=== PATIENT | female | born 1990 | race Caucasian/White ===

== ENCOUNTER 2017-07-10 20:07 | Inpatient (IN) | payer OTHER ==
[~2017-07-10] VITALS: Ht 154.9 cm; Wt 62.7 kg
--- NOTE | 2017-07-10 21:18 | ED PSYCHIATRIC COMPLAINT ---
History of Present Illness General Chief Complaint: Psychiatric Related Complaint Stated Complaint: "PSY EVAL,SI" Source: patient Exam Limitations: no limitations Vital Signs & Intake/Output Vital Signs & Intake/Output Vital Signs Date Time Temp Pulse Resp B/P B/P Pulse O2 O2 Flow FiO2 Mean Ox Delivery Rate 07/11 0639 97.7 89 20 108/60 99 Room Air 07/10 2246 98.6 92 19 110/76 98 Room Air 07/10 2021 98.5 118 18 115/78 96 Room Air ED Intake and Output 07/11 0000 07/10 1200 Intake Total Output Total Balance Patient 145 lb Weight Weight Reported by Patient Measurement Method Allergies Coded Allergies: No Known Allergies (07/10/17) Reconcile Medications Clonazepam 1 MG TABLET 1 TAB PO BIDP PRN ANXIETY (Reported) Dextroamphetamine/Amphetamine (Dextroamp-Amphet ER 30 MG Cap) (Unknown Strength) CAP.ER.24H (Unknown Dose) PO QAM ADHD (Reported) Escitalopram Oxalate 10 MG TABLET 1 TAB PO DAILY MENTAL HEALTH (Reported) Hydroxyzine HCl (hydrOXYzine HCl) (Unknown Strength) TABLET (Unknown Dose) UNKNOWN (Reported) Ibuprofen 600 MG TABLET 1 TAB PO TID PRN PAIN/INFLAMMATION (Reported) with food [place] Carbonate (Unknown Strength) CAPSULE (Unknown Dose) PO DAILY MENTAL HEALTH (Reported) Triage Note: PT FROM HOME C/O DEPRESSION/ SI+ THOUGHTS. PT STATES A MIX OF EVENTS IN HER LIFE IS CAUSING HER TO BE DEPRESSED AND THOUGHTS TO HARM HERSELF. PT STATES PLAN WAS TO "TAKE A BUNCH OF TYLENOL PM'S AND NEVER WAKE UP, BECAUSE I CANT TAKE ACETAMINOPHEN D/T THE ADDERALL. PTS VSS. FRIEND IN TRIAGE WITH PT FOR SUPPORT. PT DENIES -HI. Triage Nurses Notes Reviewed? yes Onset: Gradual Duration: day(s):, changing over time, continues in ED, getting worse Timing: recent history Severity: moderate, severe Associated Symptoms: anxiety, suicidal ideation LMP (ages 10-50): unknown : No Patient currently breastfeeds: No HPI: 27-year-old female past medical history of anxiety and depression presents for evaluation of increasing depression and suicidal ideation. Patient states that over the past several days and having thoughts of wanting to hurt herself. She states he has a plan to take large amounts of Tylenol PMs. She reports multiple different life stressors are causing this but denies any single acute change. She denies any alcohol or drug use. She is prescribed Klonopin which she takes as needed for anxiety. She reports drinking occasionally but not daily. No homicidal ideation. No chest pain shortness of breath or hallucinations. She's never been hospitalized for psychiatric issues in the past. (Gibran Grigsby) Past History Travel History Traveled to [place] past 21 day No Medical History Any Pertinent Medical History? see below for history Psychiatric: anxiety, depression, ADHD Isolation History: Standard Surgical History Surgical History: non-contributory Psychosocial History What is your primary language Guyanese Tobacco Use: Current Daily Use Daily Tobacco Use Amount/Type: => 5 Cigarettes daily ETOH Use: occasional use Illicit Drug Use: denies illicit drug use Family History Hx Contributory? No (Gibran Grigsby) Review of Systems Review of Systems Constitutional: Reports: no symptoms. EENTM: Reports: no symptoms. Respiratory: Reports: no symptoms. Cardiovascular: Reports: no symptoms. GI: Reports: no symptoms. Genitourinary: Reports: no symptoms. Musculoskeletal: Reports: no symptoms. Skin: Reports: no symptoms. Neurological/Psychological: Reports: see HPI, anxiety, depressed. Hematologic/Endocrine: Reports: no symptoms. Immunologic/Allergic: Reports: no symptoms. All Other Systems: Reviewed and Negative (Gibran Grigsby) Physical Exam Physical Exam General Appearance: well developed/nourished, no apparent distress, alert, awake Head: atraumatic, normal appearance Eyes: Bilateral: normal appearance, PERRL, EOMI. Ears, Nose, Throat: normal pharynx, normal ENT inspection, hearing grossly normal Neck: normal inspection, supple, full range of motion Respiratory: normal breath sounds, chest non-tender, no respiratory distress, lungs clear Cardiovascular: regular rate/rhythm Gastrointestinal: soft, non-tender Extremities: normal range of motion Neurological/Psychiatric: no motor/sensory deficits, awake, alert, calm Appearance/Memory/Insight: disheveled Behavoir/Eye Contact/Speech: cooperative, normal speech, good eye contact Thoughts/Hallucinations: normal thought pattern, no apparent hallucination Skin: intact, normal color, warm/dry SAD PERSONS SAD PERSONS Response Value Depression/Hopelessness? yes 2 Organized/Serious Attempt yes 2 Social Support? has support 0 Stated Future Intent? yes 2 Total 6 SAD PERSONS Done? yes (Black PA,Gibran) Progress Differential Diagnosis: dementia, drug intoxication, drug overdose, drug withdrawal, electrolyte abnormality Plan of Care: Orders Procedure Date/time Status Regular Diet 07/11 B Active Admit to inpatient psych 07/11 1111 Active Admit to inpatient 07/11 1111 Active Add-on Test (ER Only) 07/11 0132 Active LITHIUM 07/10 2122 Complete Add-on Test (ER Only) 07/10 2112 Active ETHANOL 07/10 2112 Complete Continuous Observation Monitor 07/10 2054 Active URINE 07/10 2054 Complete URINE DRUG SCREEN FOR ER ONLY 07/10 2054 Complete URINALYSIS 07/10 2054 Complete COMPREHENSIVE METABOLIC PANEL 07/10 2054 Complete CBC WITHOUT DIFFERENTIAL 07/10 2054 Complete ED CRISIS PSYCH CONSULT 07/10 2054 Active Current Medications Sig/Chantelle Start time Last Medication Dose Stop Time Status Admin Clonazepam 1 MG ONCE ONE 07/11 1115 UNVr (Klonopin 1MG Tab) 07/11 1116 Clonazepam 1 MG BID 07/11 0900 UNVr 07/11 (Klonopin 1MG Tab) 07/18 0859 0806 Escitalopram Oxalate 10 MG DAILY 07/11 0900 UNVr 07/11 (Lexapro) 0806 Laboratory Tests 07/10/172124: Urine Opiates Screen < 100, Methadone Screen < 40, Barbiturate Screen < 60, Ur Phencyclidine Scrn < 6.00, Amphetamines Screen > 1450 H, U Benzodiazepines Scrn 166, Urine Cocaine Screen < 50, Urine Cannabis Screen < 5.00, Urine Color YEL, Urine Clarity CLEAR, Urine pH 6.0, Ur Specific [place] 1.015, Urine Protein NEG, Urine Ketones NEG, Urine Nitrite NEG, Urine Bilirubin NEG, Urine Urobilinogen 0.2, Ur Leukocyte Esterase TRACE H, Ur Microscopic SEDIMENT EXAMINED, Urine RBC RARE, Urine WBC 1-3 H, Ur Epithelial Cells MANY H, Urine Bacteria FEW H, Urine Mucus RARE, Urine Hemoglobin NEG, Urine Glucose NEG, Urine Test NEGATIVE 07/10/172122: Anion Gap 12, Estimated GFR > 60, BUN/Creatinine Ratio 10.0, Glucose 89, Calcium 9.8, Total Bilirubin 0.7, AST 17, ALT 26, Alkaline Phosphatase 76, Total Protein 7.4, Albumin 4.5, Globulin 2.9, Albumin/Globulin Ratio 1.6, CBC w Diff NO MAN DIFF REQ, RBC 4.87, MCV 85.0, MCH 28.3, MCHC 33.3, RDW 13.2, MPV 8.6, Gran % 56.7, Lymphocytes % 34.9, Monocytes % 4.9, Eosinophils % 3.1, Basophils % 0.4, Absolute Granulocytes 3.6, Absolute Lymphocytes 2.2, Absolute Monocytes 0.3, Absolute Eosinophils 0.2, Absolute Basophils 0, [place] 0.4 L, Serum Alcohol < 10.0 Patient seen and evaluated. She is here reporting increasing depression and suicidal ideation. She has a plan to take large AMOUNT Tylenol. She denies hallucinations or drug use. We'll check basic labs patient will then see crisis. Blood work is within normal limits. Daily meds ordered. Patient signed off to Dr. Barriga pending crisis eval Hand-Off Endorsed To: Zeb Barriga MD Endorsed Time: 0100 Pending: other (CRISIS) (Gibran Grigsby) Hand-Off Endorsed To: Carlos Kyle MD Endorsed Time: 0700 Pending: consult, other (Zeb Barriga MD) Departure Departure Disposition: STILL A PATIENT Condition: Stable Clinical Impression Primary Impression: Suicidal ideation Referrals: Patient Has No Primary Care Dr (PCP/Family) Departure Forms: Customer Survey General Discharge Information (Gibran Grigsby) PA/JIGSAWYER Co-Sign Statement Statement: ED Attending supervision documentation- x I saw and evaluated the patient. I have also reviewed all the pertinent lab results and diagnostic results. I agree with the findings and the plan of care as documented in the PA's/JIGSAWYER's documentation. x I have reviewed the ED Record and agree with the PA's/JIGSAWYER's documentation. [] Additions or exceptions (if any) to the PAs/JIGSAWYER's note and plan are summarized below: [] (Zeb Barriga MD) Psych Admission Note Psychiatric Admission: I have reviewed all the pertinent lab results and diagnostic results. AYO EDDY will be admitted to our inpatient Psychiatric unit for treatment and care. (Anabella TAYLOR,Carlos Ruiz)
[2017-07-10 21:33] LABS: ABSOLUTE BASOPHIL COUNT 0 /CUMM (0.0-0.2); ABSOLUTE EOSINOPHIL COUNT 0.2 /CUMM (0.0-0.7); ABSOLUTE GRANULOCYTE CT 3.6 /CUMM (1.4-6.5); ABSOLUTE LYMPH COUNT 2.2 /CUMM (1.2-3.4); ABSOLUTE MONOCYTE COUNT 0.3 /CUMM (0.10-0.60); BASOPHIL % 0.4 % (0.0-2.0); EOSINOPHIL % 3.1 % (0-5); GRANULOCYTE % 56.7 % (42.2-75.2); HEMATOCRIT 41.4 % (37-47); MEAN CORPUSCULAR HGB 28.3 PG (27.0-31.0); MEAN CORPUSCULAR HGB CONC 33.3 G/DL (33.0-37.0); MEAN PLATELET VOLUME 8.6 FL (7.4-10.4); PLATELET COUNT 279 /CUMM (130-400); RBC DISTRIBUTION WIDTH 13.2 % (11.5-14.5); RED BLOOD CELL CT 4.87 /CUMM (4.20-5.40); WHITE BLOOD CELL COUNT 6.4 /CUMM (4.8-10.8)
[2017-07-10] MEDS ORDERED: DEXTROAMP-AMPHE30 M1 PO (21:45)
[2017-07-10] MEDS ORDERED: ESCITALOPRAM OX10 MG PO (21:46)
[2017-07-10] MEDS ORDERED: CLONAZEPAM1 M2 PO (21:46)
[2017-07-10] MEDS ORDERED: LITHIUM CARBON300 M4 PO (21:46)
[2017-07-10] MEDS ORDERED: IBUPROFEN600 M1 PO (21:47)
[2017-07-10] MEDS ORDERED: HYDROXYZINE HCL25 M3 (21:47)
[2017-07-11 02:21] LABS: LITHIUM 0.4 mmol/L (0.6-1.2)
--- NOTE | 2017-07-11 10:28 | ED PSYCH CRISIS CONSULTATION ---
Crisis Consult Basic Assessment Date of Consult: 07/11/17 Responsible Person/Accompanied By: father present Insurance Authorization: Insurance #1: Insurance name: [employer] Phone number: Policy number: [id number] Group number: Authorization number: ED Provider: Patient's ED Provider: Gibran Grigsby Primary Care Physician: Patient's PCP: Patient Has No Primary Care Dr PCP's Phone Number: Current Psychiatrist: Dr. Osmani Parker Chief Complaint: Psychiatric Related Complaint Patient's Quote: "First episode of severe depression" Present Illness: Pt is a 27 year old single female presented to the ED last night, 07/10, with worsening depression and SI w/ plan to overdose on Tylenol PM. Pt has had passive suicidal thoughts before but never had a plan to overdose. Pt reports she has been working two jobs for the last month and is exhausted and overwhelemed. 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 She picked up the second job to help with her financial difficulties. Pt currently sees a psychiatrist, Dr. Osmani Parker and a therapist, Aisha. Pt sees Aisha 1x/ month for the last year. Pt has been seeing psychiatrist for a few months and had a psychiatrist prior to that whom she had scheduling difficulties with. Pt was on Lexapro 10mg, Klonopin and Adderall prior to starting with Dr. Parker. Crisis spoke with Dr. Akhtar ([phone]). He reports he continued medications pt reported she had been prescribed and added [place] for the suicidal thinking. He reports patient's presentation was acute this week with no new stressor. Pt endorses the following symptoms of depression: no apetite, trouble falling asleep then waking up every 3 hours, overwhelming anxiety and sadness. Pt reports she had one episode of mynor in which she "did reckless things that were out of character". She stated a psychiatrist once old her that she may be diagnosed with Bipolar II Disorder. Pt's urine toxicology report was positive for ampethamines and is prescribed Adderral. Her BAL was zero. Pt does endorse drinking 4-5 beers every other weekend. Pt reports she used to drink a lot more and her parents told her to cut back so she did. Pt reports 1 incident in which she was in [place] on and she was put into the "drunk tank" but then released and not arrested. Pt has no other legal history. Crisis met with patient's father, Adalid Kumar. Father is concerned about patient. Father reports her depression has been "bad" for the last 8-9 months but has gotten much worse over the last 3-4 months. He reports he is concerned that if pt goes home she will overdose on her medication. Crisis completed the C-SSRS. Pt has the following risk factors: wishes to be , suicidal thoughts, and plan to overdose within the last several days. pt has the following protective factors: supportive family and engaged in work. Crisis consulted with Dr. Jimenez and pt is recommended for inpatient psychiatric treatment. Pt agrees and signed voluntary agreement. Patient's Address: [address] [place] [address] Other Phone Number: Who Do You Live With? Family Family/Informants Interviewed: Met with fatherAdalid in person. Father has concerns about patient if she leaves. He reports pt's mother cries in bed at night because she is worried one day the pt will overdose on her medication. Father is concerned if she goes home nothing will change. Father thinks inpatient would be helpful. Allergies - Coded Allergies: No Known Allergies (07/10/17) Current Medications - Scheduled Medications Dextroamphetamine/Amphetamine (Dextroamp-Amphet ER 30 MG Cap) (Unknown Strength) CAP.ER.24H (Unknown Dose) PO QAM ADHD #30 (Reported) Entered as Reported by Paulette Murphy on 07/10/172144 Escitalopram Oxalate 10 MG TABLET 1 TAB PO DAILY MENTAL HEALTH #10 (Reported) Entered as Reported by Paulette Murphy on 07/10/172145 [place] Carbonate (Unknown Strength) CAPSULE (Unknown Dose) PO DAILY MENTAL HEALTH #10 (Reported) Entered as Reported by Paulette Murphy on 07/10/172145 Scheduled PRN Medications Clonazepam 1 MG TABLET 1 TAB PO BIDP PRN ANXIETY #30 (Reported) Entered as Reported by Paulette Murphy on 07/10/172145 Ibuprofen 600 MG TABLET 1 TAB PO TID PRN PAIN/INFLAMMATION #15 (Reported) Entered as Reported by Paulette Murphy on 07/10/172146 Miscellaneous Medications Hydroxyzine HCl (hydrOXYzine HCl) (Unknown Strength) TABLET (Unknown Dose) UNKNOWN #15 (Reported) Entered as Reported by Paulette Murphy on 07/10/172146 Laboratory Results: Laboratory Tests 07/10/172124: Urine Opiates Screen < 100, Methadone Screen < 40, Barbiturate Screen < 60, Ur Phencyclidine Scrn < 6.00, Amphetamines Screen > 1450 H, U Benzodiazepines Scrn 166, Urine Cocaine Screen < 50, Urine Cannabis Screen < 5.00, Urine Color YEL, Urine Clarity CLEAR, Urine pH 6.0, Ur Specific [place] 1.015, Urine Protein NEG, Urine Ketones NEG, Urine Nitrite NEG, Urine Bilirubin NEG, Urine Urobilinogen 0.2, Ur Leukocyte Esterase TRACE H, Ur Microscopic SEDIMENT EXAMINED, Urine RBC RARE, Urine WBC 1-3 H, Ur Epithelial Cells MANY H, Urine Bacteria FEW H, Urine Mucus RARE, Urine Hemoglobin NEG, Urine Glucose NEG, Urine Test NEGATIVE 07/10/172122: Anion Gap 12, Estimated GFR > 60, BUN/Creatinine Ratio 10.0, Glucose 89, Calcium 9.8, Total Bilirubin 0.7, AST 17, ALT 26, Alkaline Phosphatase 76, Total Protein 7.4, Albumin 4.5, Globulin 2.9, Albumin/Globulin Ratio 1.6, CBC w Diff NO MAN DIFF REQ, RBC 4.87, MCV 85.0, MCH 28.3, MCHC 33.3, RDW 13.2, MPV 8.6, Gran % 56.7, Lymphocytes % 34.9, Monocytes % 4.9, Eosinophils % 3.1, Basophils % 0.4, Absolute Granulocytes 3.6, Absolute Lymphocytes 2.2, Absolute Monocytes 0.3, Absolute Eosinophils 0.2, Absolute Basophils 0, [place] 0.4 L, Serum Alcohol < 10.0 Past History Past Medical History Neurological: hx of concussion in high school Psychiatric: anxiety, depression, ADHD Past Surgical History Surgical History: non-contributory Psychosocial History Strengths/Capabilities: pt is motivated for treatment, specifically CBT pt is employed Physical Limitations (Interventions): none observed Psychiatric Treatment History Psych Treatment Psychiatric Treatment Yes Inpatient Treatment No Outpatient Treatment Yes Location of Treatment Dr. Osmani Person, therapist "Aisha" Reason for Treatment depression/anxiety/adhd Dates of Treatment recently started with this psychiatrst, seen therapist 1 year Response to Treatment fair Diagnosis by History: Depression Anxiety ADHD Substance Use/Abuse History Drug Use/Abuse 1 Substances Used/Abused Yes Substance Used/Abused Alcohol First Use high school Last Used last friday07/05/17 How much used/taken 4-5 beers How often every other weekend For how long drinks less now than before and no longer drinks hard alcohol Route of use oral Drug Use/Abuse 2 Substances Used/Abused Yes Substance Used/Abused Other (list in comments) (Adderall ) First Use 11th grade Last Used yesterday How often daily For how long daily- 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 ADHD Route of use oral Substance Abuse Treatment Substance Abuse Treatment Past Substance Abuse [place] No Current Mental Status Mental Status Orientation: Person, Place, Situation Affect: Sad Speech: WNL Neuro-vegetative: Anhedonia, Appetite Decreased, Energy Decreased, Sleep Disturbance Appearance Appearance- Dress/Hygiene: pt presents in hospital attire, some acne on face Behaviors Thought Process: Logical/Rational Thought Content: WNL Memory: WNL Insight: Fair SI/HI Risk Assessment Past Suicidal Ideation/Attempts Yes Current Suicidal Ideation/Att Yes Past Homicidal Ideation/Att: No Current Homicidal Ideation/Attempts No Degree of Intent: Plan (overdose on tylenol PM) Danger To: Self Risk Factors: high anxiety/distress, substance abuse, limited support Lethality Ratin PTSD Checklist PTSD Done? patient declined ED Management Sitter: Yes Restraints: No DSM5/PS Stressors/Medical Prob Diagnosis' (DSM 5, Stressors, Medical): F33.3 Major Depressive Disorder, Severe F90.9 Unspecified Attention-Deficit Hyperactivity Disorder F10.10 Alcohol Use Disorder, Mild Financial Stress Current GAF: 28 Departure Disposition Psych Medical Clearance Date: 07/11/17 Medically Cleared at: 0930 Time Started: 929 Time Ended: 1015 Psychiatrist Consulted: Dr. Jimenez Date Disposition Established: 07/11/17 Time Disposition Established: 1030 Plan for Disposition - Modality: Inpatient Psychiatry Facility: [facility] Referrals Patient Has No Primary Care Dr (PCP/Family)
--- NOTE | 2017-07-11 12:05 | IP CRISIS DIAG ASSESS PSYCH ---
See Addendum Diagnostic Assessment Basic Assessment Insurance Authorization: Insurance #1: Insurance name: [employer] Phone number: Policy number: [id number] Group number: Authorization number: Patient is authorized for 5 days 07/11/17-07/15/17. Auth # [id number]. Review on . SW to call reviewerDemarco at [phone]. Primary Care Physician: Patient's PCP: Patient Has No Primary Care Dr PCP's Phone Number: Patient's Quote: "First episode of severe depression" Present Illness: Pt is a 27 year old single female presented to the ED last night, 07/10, with worsening depression and SI w/ plan to overdose on Tylenol PM. Pt has had passive suicidal thoughts before but never had a plan to overdose. Pt reports she has been working two jobs for the last month and is exhausted and overwhelemed. 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 She picked up the second job to help with her financial difficulties. Pt currently sees a psychiatrist, Dr. Osmani Parker and a therapist, Aisha. Pt sees Aisha 1x/ month for the last year. Pt has been seeing psychiatrist for a few months and had a psychiatrist prior to that whom she had scheduling difficulties with. Pt was on Lexapro 10mg, Klonopin and Adderall prior to starting with Dr. Parker. Crisis spoke with Dr. Akhtar ([phone]). He reports he continued medications pt reported she had been prescribed and added Irving for the suicidal thinking. He reports patient's presentation was acute this week with no new stressor. Pt endorses the following symptoms of depression: no apetite, trouble falling asleep then waking up every 3 hours, overwhelming anxiety and sadness. Pt reports she had one episode of mynor in which she "did reckless things that were out of character". She stated a psychiatrist once old her that she may be diagnosed with Bipolar II Disorder. Pt's urine toxicology report was positive for ampethamines and is prescribed Adderral. Her BAL was zero. Pt does endorse drinking 4-5 beers every other weekend. Pt reports she used to drink a lot more and her parents told her to cut back so she did. Pt reports 1 incident in which she was in [place] on and she was put into the "drunk tank" but then released and not arrested. Pt has no other legal history. Crisis met with patient's father, Adalid Kumar. Father is concerned about patient. Father reports her depression has been "bad" for the last 8-9 months but has gotten much worse over the last 3-4 months. He reports he is concerned that if pt goes home she will overdose on her medication. Crisis completed the C-SSRS. Pt has the following risk factors: wishes to be , suicidal thoughts, and plan to overdose within the last several days. pt has the following protective factors: supportive family and engaged in work. Crisis consulted with Dr. Jimenez and pt is recommended for inpatient psychiatric treatment. Pt agrees and signed voluntary agreement. Patient's Address: [address] [place] [address] Other Phone Number: Who Do You Live With? Family Feel Safe Where You Live? Yes Marital Status: single Do You Have Children? No Primary Language? Irish Language(s) Spoken At Home: Irish Family/Informants Interviewed: Met with father, Adalid in person. Father has concerns about patient if she leaves. He reports pt's mother cries in bed at night because she is worried one day the pt will overdose on her medication. Father is concerned if she goes home nothing will change. Father thinks inpatient would be helpful. Allergies - Coded Allergies: No Known Allergies (07/10/17) Current Medications - Scheduled Medications Dextroamphetamine/Amphetamine (Dextroamp-Amphet ER 30 MG Cap) (Unknown Strength) CAP.ER.24H (Unknown Dose) PO QAM ADHD #30 (Reported) Entered as Reported by Paulette Murphy on 07/10/172144 Escitalopram Oxalate 10 MG TABLET 1 TAB PO DAILY MENTAL HEALTH #10 (Reported) Entered as Reported by Paulette Murphy on 07/10/172145 [place] Carbonate (Unknown Strength) CAPSULE (Unknown Dose) PO DAILY MENTAL HEALTH #10 (Reported) Entered as Reported by Paulette Murphy on 07/10/17 214 Scheduled PRN Medications Clonazepam 1 MG TABLET 1 TAB PO BIDP PRN ANXIETY #30 (Reported) Entered as Reported by Paulette Murphy on 07/10/172145 Ibuprofen 600 MG TABLET 1 TAB PO TID PRN PAIN/INFLAMMATION #15 (Reported) Entered as Reported by Paulette Murphy on 07/10/172146 Miscellaneous Medications Hydroxyzine HCl (hydrOXYzine HCl) (Unknown Strength) TABLET (Unknown Dose) UNKNOWN #15 (Reported) Entered as Reported by Paulette Murphy on 07/10/172146 Consequences of Psych Med Use: pt reports she has been taking Lexapro, Adderall, and Klonopin for a while. Psychiatrist recently added Irving to treat suicidal thinking. Lab Results: Laboratory Tests 07/10/172124: Urine Opiates Screen < 100, Methadone Screen < 40, Barbiturate Screen < 60, Ur Phencyclidine Scrn < 6.00, Amphetamines Screen > 1450 H, U Benzodiazepines Scrn 166, Urine Cocaine Screen < 50, Urine Cannabis Screen < 5.00, Urine Color YEL, Urine Clarity CLEAR, Urine pH 6.0, Ur Specific [place] 1.015, Urine Protein NEG, Urine Ketones NEG, Urine Nitrite NEG, Urine Bilirubin NEG, Urine Urobilinogen 0.2, Ur Leukocyte Esterase TRACE H, Ur Microscopic SEDIMENT EXAMINED, Urine RBC RARE, Urine WBC 1-3 H, Ur Epithelial Cells MANY H, Urine Bacteria FEW H, Urine Mucus RARE, Urine Hemoglobin NEG, Urine Glucose NEG, Urine Test NEGATIVE 07/10/172122: Anion Gap 12, Estimated GFR > 60, BUN/Creatinine Ratio 10.0, Glucose 89, Calcium 9.8, Total Bilirubin 0.7, AST 17, ALT 26, Alkaline Phosphatase 76, Total Protein 7.4, Albumin 4.5, Globulin 2.9, Albumin/Globulin Ratio 1.6, CBC w Diff NO MAN DIFF REQ, RBC 4.87, MCV 85.0, MCH 28.3, MCHC 33.3, RDW 13.2, MPV 8.6, Gran % 56.7, Lymphocytes % 34.9, Monocytes % 4.9, Eosinophils % 3.1, Basophils % 0.4, Absolute Granulocytes 3.6, Absolute Lymphocytes 2.2, Absolute Monocytes 0.3, Absolute Eosinophils 0.2, Absolute Basophils 0, Irving 0.4 L, Serum Alcohol < 10.0 Toxicology Screen Completed? Yes Results: positive Symptoms of Use: + amphetamines, prescribed Adderrall Past History Abuse/Trauma History Trauma History/Current Trauma: Denies Legal History Current Legal Status: none Have you ever been arrested? No Psychosocial History Strengths/Capabilities: pt is motivated for treatment, specifically CBT pt is employed Physical Limitations (Interventions): none observed Psychiatric Treatment History Psych Treatment Psychiatric Treatment Yes Inpatient Treatment No Outpatient Treatment Yes Location of Treatment Dr. 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 ADHD Route of use oral Drug Use/Abuse minimum 12mo Hx 2 Substances Used/Abused Yes Substance Used/Abused Alcohol First Use high school Last Used last weekend How much used/taken 4-5 beers How often every other weekend For how long cut down, used to drink more and use to drink hard alochol Route of use oral Substance Abuse Treatment Substance Abuse Treatment Past Substance Abuse [place] No Education History Highest Level of Education: some college Preferred Learning Style: visual, auditory, experiential Current Mental Status Mental Status Orientation: Person, Place, Situation Affect: Sad Speech: WNL Neuro-vegetative: Anhedonia, Appetite Decreased, Energy Decreased, Sleep Disturbance Appearance Appearance- Dress/Hygiene: pt presents in hospital attire, some acne on face Behaviors Thought Process: Logical/Rational Thought Content: WNL Memory: WNL Insight: Fair SI/HI Risk Assessment - Minimum 6mo History- Past Suicidal Ideation/Attempts Yes Current Suicidal Ideation/Att Yes Past Homicidal Ideation/Att: No Current Homicidal Ideation/Attempts No Degree of Intent: Plan (overdose on tylenol PM) Danger To: Self Risk Factors: high anxiety/distress, substance abuse, limited support Lethality Ratin Needs/Init TX Plan/Goals: Resolve suicidal thinking increase coping skills medication evaluation AUDIT-C Questionnaire: AUDIT-C Questionnaire: Response Value ETOH use in the past year 2-4 times/month 2 # drinks typical/day 5 or 6 2 6 or > drinks per occasion Less than monthly 1 Total 5 DSM5/PS Stressors/Medical Prob Diagnosis' (DSM 5, Stressors, Medical): F33.3 Major Depressive Disorder, Severe F90.9 Unspecified Attention-Deficit Hyperactivity Disorder F10.10 Alcohol Use Disorder, Mild Financial Stress Current GAF: 28
[2017-07-11 12:37] VITALS: BP 98/64
--- NOTE | 2017-07-11 14:06 | History & Physical ---
General Information and HPI History of Present Illness: This young female is admitted for the first time to [facility] because of increasing depression. She reports that she was getting out of control and therefore was brought to the hospital by her parents and her coworker. She did not have any suicidal or homicidal ideation and claims that she was just started on lithium by her outpatient psychiatrist which he has not started taking yet she has been seeing a psychiatrist as well as a therapist regularly for a long time but denies any previous hospitalization as inpatient in [facility]. She denies any significant medical history in the past and denies any major surgeries or injuries. 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 She claims she has been on Adderall and a tranquilizer by the psychiatrist until yesterday she admits to smoking about a pack of cigarettes a day claims that she drinks in a binge fashion only when she goes over the weekend and is approximately once every couple of weeks. She denies any other illegal drugs and lives with her parents. She has 2 siblings but denies any suicidal the family and claims that her father is a recovering drug addict. Allergies/Medications Allergies: Coded Allergies: No Known Allergies (07/10/17) Home Med list Clonazepam 1 MG TABLET 1 TAB PO BIDP PRN ANXIETY (Reported) Dextroamphetamine/Amphetamine (Dextroamp-Amphet ER 30 MG Cap) (Unknown Strength) CAP.ER.24H (Unknown Dose) PO QAM ADHD (Reported) Escitalopram Oxalate 10 MG TABLET 1 TAB PO DAILY MENTAL HEALTH (Reported) Hydroxyzine HCl (hydrOXYzine HCl) (Unknown Strength) TABLET (Unknown Dose) UNKNOWN (Reported) Ibuprofen 600 MG TABLET 1 TAB PO TID PRN PAIN/INFLAMMATION (Reported) with food [place] Carbonate (Unknown Strength) CAPSULE (Unknown Dose) PO DAILY MENTAL HEALTH (Reported) Past History Travel History Traveled to [place] past 21 day No Medical History Neurological: hx of concussion in high school Gastrointestinal: lactose intolerance Musculoskeletal: chronic back pain Psychiatric: anxiety, depression, ADHD Isolation History: Standard Surgical History Surgical History: non-contributory Past Family/Social History Psychosocial History ETOH Use: occasional use Illicit Drug Use: denies illicit drug use Review of Systems Review of Systems Constitutional: Denies: no symptoms. EENTM: Denies: no symptoms. Cardiovascular: Denies: no symptoms. Respiratory: Denies: no symptoms. GI: Denies: no symptoms. Genitourinary: Denies: no symptoms. Musculoskeletal: Reports: see HPI, back pain, muscle pain. Skin: Denies: see HPI. Neurological/Psychological: Reports: see HPI, anxiety, depressed, emotional problems. Hematologic/Endocrine: Denies: no symptoms. All Other Systems: Reviewed and Negative Exam & Diagnostic Data Last 24 Hrs of Vital Signs/I&O Vital Signs Date Time Temp Pulse Resp B/P B/P Pulse O2 O2 Flow FiO2 Mean Ox Delivery Rate 07/11 1237 98.3 87 98/64 07/11 1233 Room Air 07/11 1150 99 Room Air 07/11 1142 98.0 87 18 124/56 99 Room Air 07/11 0639 97.7 89 20 108/60 99 Room Air 07/10 2246 98.6 92 19 110/76 98 Room Air 07/10 2022 98.5 118 18 115/78 96 Room Air Intake & Output 07/11 1600 07/11 0800 07/11 0000 Intake Total Output Total Balance Patient 138 lb 145 lb Weight Weight Reported by Patient Measurement Method Physical Exam General Appearance Alert, Oriented X3, Cooperative, No Acute Distress Skin No Rashes, No Breakdown, No Significant Lesion HEENT Atraumatic, PERRLA, EOMI, Mucous Membr. moist/pink Neck Supple, No JVD, No thryomegaly, +2 Carotid Pulse wo Bruit Lymphatic Cervical nl Cardiovascular Regular Rate, Normal S1, Normal S2, No Murmurs, Gallops, Rubs Lungs Clear to Auscultation, Normal Air Movement Abdomen Normal Bowel Sounds, Soft, No Tenderness, No Hepatospenomegaly, No Masses Neurological Exam Findings: Normal Gait, Normal Speech, Strength at 5/5 X4 Ext, Normal Tone, Cranial Nerves 3-12 NL, Reflexes 2+ Cranial Nerves II through XII: WNL Extremities No Clubbing, No Cyanosis, No Edema, No Tenderness/Swelling Assessment/Plan Assessment: This young female is admitted for the first time in the hospital 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 She has been seeing psychiatry on a regular basis for a long time and is admitted for adjustment of medication. From medical standpoint she has some back pain which is mostly musculoskeletal strain and there is no evidence of radiculopathy. For now there is no reason to do any radiological studies and we will treat him empirically with Naprosyn and local BenGay rub. Her admission workup including a CBC CMP and electrolytes liver functions are all within normal limits and the urine toxicology is positive for amphetamines consistent with her Adderall intake and there is no need for any other medication. As Ranked By This Provider Problem List: 1. Suicidal ideation Miscellaneous Miscellaneous Documentation Attending Case Discussed With: Julien Jimenez MD Primary Care Physician: Patient Has No Primary Care Dr Patient sees these Specialists none Level of Patient Care: CARLITA Rawls Attending MD Review Statement Attending Statement Attending MD Statement: examined this patient, reviewed EMR data (avail), discussed with nursing Attending Assessment/Plan: This young female is admitted for increasing depression and bipolar disorder. From medical standpoint she is fairly stable except for the low back pain which is due to musculoskeletal strain. Her admission blood work is normal and we will use Naprosyn and analgesic balm for symptomatic treatment. She does not need any other workup or treatment from medical standpoint.
--- NOTE | 2017-07-11 15:29 | CPS PROVIDER INIT ASMT PSYCH ---
Psychiatric Admission Resident Advisor's Note Reviewed: Yes Patient Seen and Examined: Yes Identifying Information: The patient is a 27-year-old single white female who was admitted on a voluntary request for hospitalization Chief Complaint: "This is my first episode of severe depression." Reaction to Hospitalization: The patient was admitted voluntarily History of Present Illness Onset of Illness: According to the crisis intervention notes the patient has been experiencing worsening of depression with thoughts and plan to overdose with Tylenol PM. The patient's reported that she has been seeing a prescriber and a therapist for the past year or so. The patient reported that for the last month she has been working 2 jobs and she has been feeling exhausted and overwhelmed. 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 Circumstances Leading to Admission: The patient reported that she has been experiencing increasing depression loss of appetite, trouble falling asleep, walking up every 3 hours or so, feeling overwhelmed with anxiety and sadness, and has been thinking about overdosing on Tylenol PM Problem(s) Justifying Need for Admission: Thoughts of suicide by overdose Past Psychiatric History Past Diagnosis(es)- if any: The patient reportedly was diagnosed with ADHD depression as well as anxiety Past Precipitating Factors- if any: This is the patient's first psychiatric admission the precipitating factors seem to be feeling overwhelmed with 2 jobs and psychosocial stressors as well - Include inpatient and outpatient treatment Treatment History: The patient has been seeing a prescriber and therapist for the past year or so both of them she said GALINA Gomes. History of Suicide Attempts or Gestures The patient denied past suicide attempts. Substance Abuse History: The patient used to drink quite a bit but reported that not lately and that she has cut down significantly she denied abusing illicit substances Allergies: Coded Allergies: No Known Allergies (07/10/17) Home Med List: The patient was on Lexapro and Klonopin and Adderall - Include any medical condition(s) that may - impact the patient's recovery/remission Past History Medical History Blood Transfusion Hx: No Neurological: hx of concussion in high school EENT: NONE Cardiovascular: NONE Gastrointestinal: lactose intolerance Renal: NONE Musculoskeletal: chronic back pain Psychiatric: anxiety, depression, ADHD Endocrine: NONE Isolation History: Standard Surgical History Surgical History: none Psychiatric Family/Social Hx Family History Psychiatric Illness: The patient denies any family history of psychiatric disorders Substance Use: Patient reported that her dad is a recovering heroin user he has been clean and sober for over a year Suicides: The patient denies any completed suicides in her family Social History Living Situation: She lives with parents and siblings Significant Relationships (family/friends): Parents and siblings Education: Unknown Vocation/Occupation: Patient has been working 2 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 - #1 Recognizing dangerous situations. - #2 Coping Skills. - #3 Basic information about quitting. Status of Tobacco Cessation Counseling: #1, #2 AND #3 Completed Cessation Med Status Nicotine Patch Ordered Alcohol Screening - ETOH screen POS if BAL >=80 or Audit-C>= M4/F3 Audit-C Score from Diag Assess: 5 Blood Alcohol Level: Laboratory Tests 07/10 2122 Toxicology Serum Alcohol (<10 MG/DL) < 10.0 Alcohol Use Screening Results: Pos per Audit C &/or BAL - If ETOH counseling indicated - the following topics are required. - #1 Express concern about the patient's - drinking at unhealthy levels, include informing - of national norms for moderate drinking: - men <= 14 drinks/week, max 4 drinks/occasion - women <= 7 drinks/week, max 3 drinks/occasion - #2 Providing feedback, including linking alcohol to - negative physical effects (liver injury, hypertension) - negative emotional effects (relationship problems and - depression) - negative occupational consequences (reduced work - performance) - #3 Advising the patient to abstain from alcohol or - to drink below national norms for moderate drinking - (as listed above). Status of ETOH Use Counseling: #1, #2 AND #3 Completed. Metabolic Screening - Screen if on a Neuroleptic Medication - Metabolic screening should include: - Blood Pressure, BMI, Glucose or Hgb A1c, & a - Lipid profile from within the past 365 days. Metabolic Screening Patient on a neuroleptic(s) . Enter below results for Hemoglobin A1C, and lipid panel if obtained during the last 365 days. BMI: 26.000 Blood Pressure: 98/64 Laboratory Results From [facility] (If applicable): Blood tests requested Exam and Plan Mental Status Examination Ambulation Status: Fully mobile, steady on her feet Appearance: Unremarkable Attitude towards examiner: Calm and cooperative Psychomotor activity: Normal psychomotor activity Behavior: No abnormal behaviors Quality of speech: Normal speech not pressured Affect: Full range of affect Mood: Reported feeling depressed lately Suicidal Ideation: Reporting having thoughts of suicide lately Homicidal Ideation: Denied thoughts of homicide or violent thoughts Hallucinations: Denied hallucinations Paranoid/Delusional Material: Denied feeling paranoid, there were no delusions during the interview Difficulties with thought organization: No difficulties with thought organization Insight: Impaired insight Judgment: Impaired judgment Orientation: She was alert and oriented to time, place, and person. Cognition: She showed reasonable attention and concentration during the interview. She reported that she was on stimulants for ADHD Memory Function: No impairment in short-term memory Estimate of intellectual functioning: Average Assets/Strengths Patient Identified Assets/Strengths: Patient seems to be intelligent, social, and confident Impression/Plan Impression and Plan: 27-year-old single white female who presented with increasing depression and thoughts to suicide with overdose - Include all active medical diagnosis that require tx DSM 5 Diagnosis(es): Major depressive disorder ADHD Alcohol use disorder, mild - Initial Tx Plan for Active Psych & Medical Conditions Treatment Plan: Inpatient psychiatric care with safety checks every 15 minutes Resume Abilify 2 mg daily Continue Lexapro 10 mg daily Continue Klonopin 1 mg twice daily - Factors that would help patient function - in a less restrictive setting. Factors: The patient will be discharged once she is no longer thinking of suicide
[2017-07-11 15:55] VITALS: BP 125/71
[2017-07-11 20:07] VITALS: BP 120/66
[2017-07-12 08:02] VITALS: BP 102/55
[2017-07-12 12:00] VITALS: BP 115/65
--- NOTE | 2017-07-12 14:44 | SOCIAL WORKER SOCIAL HX PSYCH ---
Social History Basic Assessment Curr Source of Income/Entitlements: employment Primary Care Physician: Patient's PCP: Patient Has No Primary Care Dr PCP's Phone Number: Primary Language? Nepalese Language(s) Spoken At Home: Nepalese Living Situation Other Living Arrangement: Lives with parents Feel Safe Where You Are Living Yes Feel Safe in Relationships? Yes Allergies - Coded Allergies: No Known Allergies (07/10/17) Current Medications - Scheduled Medications Dextroamphetamine/Amphetamine (Dextroamp-Amphet ER 30 MG Cap) (Unknown Strength) CAP.ER.24H (Unknown Dose) PO QAM ADHD #30 (Reported) Entered as Reported by Paulette Murphy on 07/10/172144 Escitalopram Oxalate 10 MG TABLET 1 TAB PO DAILY MENTAL HEALTH #10 (Reported) Entered as Reported by Paulette Murphy on 07/10/172145 [place] Carbonate (Unknown Strength) CAPSULE (Unknown Dose) PO DAILY MENTAL HEALTH #10 (Reported) Entered as Reported by Paulette Murphy on 07/10/172145 Scheduled PRN Medications Clonazepam 1 MG TABLET 1 TAB PO BIDP PRN ANXIETY #30 (Reported) Entered as Reported by Paulette Murphy on 07/10/172145 Ibuprofen 600 MG TABLET 1 TAB PO TID PRN PAIN/INFLAMMATION #15 (Reported) Entered as Reported by Paulette Murphy on 07/10/172146 Miscellaneous Medications Hydroxyzine HCl (hydrOXYzine HCl) (Unknown Strength) TABLET (Unknown Dose) UNKNOWN #15 (Reported) Entered as Reported by Paulette Murphy on 07/10/172146 Past History Past Medical History Neurological: hx of concussion in high school EENT: NONE Cardiovascular: NONE Gastrointestinal: lactose intolerance Renal: NONE Musculoskeletal: chronic back pain Psychiatric: anxiety, depression, ADHD Endocrine: NONE Past Surgical History Surgical History: non-contributory /Family History Place/Country of Origin: [place] Childhood Family Constellation: Mom, dad and 2 siblings. Primary Childhood Caretakers: father, mother Family Life During Childhood: "Rough because of my father's addiction." DCF Involvement? No Mother's Age (Current/): 50 Relationship w/Mother: Not so good, just helps financially. Relationship w/Father: "Good" Any Sibling(s)? Yes Sibling's Gender(s)/Age(s): male Sibling 1: (17), female Sibling 2: (22) Relationship w/Sibling(s): Not close Relationship w/Friends: Good Family Psych/Sub Abuse/Add Hx: drug of choice (Father used heroin) Number of Pregnancies: 0 Number of Miscarriages: 0 Number of Abortions: 0 Other Comments: Father used heroin pt.'s whole life and has now been clean for a year. Abuse/Trauma History Trauma History/Current Trauma: Denies Legal History Current Legal Status: none Pending Court Dates: None Have you ever been arrested No Hx of Juvenile Legal Charges? No Hx of Adult Legal Charges? No Civil Proceedings: None Domestic Relations Court: None Child Protective Serv Involvmnt N/A National Accounts Sales N/a Psychosocial History Primary Support System: Co-worker Strengths/Capabilities: pt is motivated for treatment, specifically CBT pt is employed Physical Limitations (Interventions): none observed Last Physical: Years ago History of Seizures? No History of Blackouts? No [place]/Social/Peer Relations Few friends Meaningful Activities: Journaling, playing video games, going to concerts, playing the [employer]. Childhood Yarsanism: Methodist Current Yazidi Affiliation: no restorationism stated Is Spirituality Important to You? "I believe in Karma but otherwise, not really." Are There Developmental Issues? No Milestones Achieved: fine motor, gross motor Psychiatric Treatment History Psych Treatment Inpatient Treatment No Outpatient Treatment Yes Location of Treatment Dr. Osmani Person, therapist "Aisha" Reason for Treatment depression/anxiety/adhd Dates of Treatment recently started with this psychiatrst, seen therapist 1 year Response to Treatment fair Diagnosis: Depression Anxiety ADHD Risk Factors: high anxiety/distress, substance abuse, limited support Substance Use/Abuse History Drug Use/Abuse Substance Used/Abused Alcohol First Use high school Last Used last weekend How much used/taken 4-5 beers How often every other weekend For how long cut down, used to drink more and use to drink hard alochol Route of use oral Have You Ever Attended AA? No Symptoms of Use: + amphetamines, prescribed Adderrall Sexual History Sexually Active Yes # of partners 4 Education History Highest Level of Education: some college Preferred Learning Style: visual, auditory, experiential HX of Learning Difficulties: ADHD Special Communication Needs: None reported Employment History Employment Employed Vocation/Occupational Hx: Past: sales, resturant and deli No. 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 History Have You Been in The ? No Current Mental Status Mental Status Orientation: Person, Place, Situation Affect: Sad Speech: WNL Neuro-vegetative: Anhedonia, Appetite Decreased, Energy Decreased, Sleep Disturbance Appearance Appearance- Dress/Hygiene: pt presents in hospital attire, some acne on face Behaviors Thought Process: Logical/Rational Thought Content: WNL Memory: WNL Insight: Fair SI/HI Risk Assessment Past Suicidal Ideation/Attempts Yes Current Suicidal Ideation/Att Yes Past Homicidal Ideation/Att: No Current Homicidal Ideation/Attempts No Degree of Intent: Plan (overdose on tylenol PM) Danger To: Self Lethality Ratin - Conclusion and Recommendations for treatment - and discharge planning
[2017-07-12 15:49] VITALS: BP 125/67
--- NOTE | 2017-07-12 16:49 | CP SOUTH PROGRESS NOTE PSYCH ---
Psych (Inpt) Progress Note Progress Note Include the following elements, when applicable: Involvement in the active treatment of the patient with behavioral observations of the patient and the patient's response to the treatment. Review of the ongoing treatment process in the context of the treatment plan. Indication of how multi-disciplinary staff members are carrying out the treatment plan. Plans for future interventions and recommendations for revision of the treatment plan. Liaison with other physicians/providers. Progress Note: Pleasant, cooperative. States that she hopes to be discharged soon, will return to her therapist and seek another psychiatrist b/c feels this could have been avoided if she was prescribed her meds earlier. She stated that she slept like a baby last night, however did complain of back pain (had some muscle spasm over last few weeks) and asked for slight increase in naproxen. She had a friend visit today and family visiting also this weekend. Not suicidal, feels much better. plans to return to work with note, stated that it keeps her busy and her mind occupied. MSE: pleasant young woman, fair grooming. no psychomotor changes. Speech is normal. Thinking is linear and not delusional. No thoughts to harm self/others. future focused. Affect is full and reactive, mood is good. Insight and judgment are good. Cognition intact. Not hallucinating. Plan: continue current plan of care. Improving clinically but may be minimizing hx to get discharged?. Has been restarted on her meds without issue.
[2017-07-12 20:02] VITALS: BP 110/66
[2017-07-13 07:50] VITALS: BP 110/54
[2017-07-13 11:58] VITALS: BP 120/76
--- NOTE | 2017-07-13 14:38 | CP SOUTH PROGRESS NOTE PSYCH ---
Psych (Inpt) Progress Note Progress Note Include the following elements, when applicable: Involvement in the active treatment of the patient with behavioral observations of the patient and the patient's response to the treatment. Review of the ongoing treatment process in the context of the treatment plan. Indication of how multi-disciplinary staff members are carrying out the treatment plan. Plans for future interventions and recommendations for revision of the treatment plan. Liaison with other physicians/providers. Progress Note: Pleasant, cooperative., Had friends visiting and has parents coming later today. Stated that her sleep was poor and wanted higher dose of trazodone. Future focused, coherent. She stated that she had her old bottle of abilify with most recent doses. She has good appetite. Her back pain is better. She did state that she had Factor V Leiden Insufficiency, recently diagnosed - sister had a PE in the past. I educated her about risk of DVT, PE, stroke, and to walk around and tell staff if her legs are swollen or painful. MSE: pleasant young woman, well groomed and well related with good eye contact. No psychomotor changes. Speech is normal. Thinking is linear and not delusional. No thoughts to harm self/others. Affect is full and reactive, mood is good. Insight and judgment are good. Cognition intact. Not hallucinating. Plan: continue current plan of care. Improving clinically but may be minimizing hx to get discharged?. Has been restarted on her meds without issue. Will ask parents to get her most recent abilify dose. * Factor V Leiden, to follow up with her PCP if any further follow up.
[2017-07-13 16:02] VITALS: BP 126/72
[2017-07-13 19:00] VITALS: BP 117/65
[2017-07-14 07:41] VITALS: BP 113/64
--- NOTE | 2017-07-14 11:54 | CP SOUTH PROGRESS NOTE PSYCH ---
Psych (Inpt) Progress Note Progress Note Future focused, coherent. She has good appetite. Pleasant, cooperative, well groomed and well related with good eye contact. No psychomotor changes. Speech is normal. Thinking is linear and not delusional. No thoughts to harm self/ others. Affect is full and reactive, mood is good. Insight and judgment are good. Cognition intact. Not hallucinating. Plan: continue current plan of care. Has been restarted on her meds without issue. hx to get discharged?. Has been restarted on her meds without issue. Will ask parents to get her most recent abilify dose. * Factor V Leiden, to follow up with her PCP if any further follow up.
[2017-07-14 12:10] VITALS: BP 119/55
--- NOTE | 2017-07-14 15:40 | SOCIAL WORKER PROG NOTE PSYCH ---
See Addendum Social Work Progress Note Progress Note Met with Nila today. She stated she is"feeling fine" and ready to discharge. She denied SI/HI, no AH/VH. 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 Also, she stated she went off her medications. She has been seeing Dr. Casron in [place], [place] and Aisha, her therapist in [place], [place]. Nila agreed to [facility] - intake 07/15 at 1:15pm for 1:30-4:30 program (M,W,F) . Met with Nila and her Father Adalid Kumar today at 4:15pm to discuss progress and discharge planning today. Also, longterm through the family meeting conferenced in her Mother, Nicky Kumar. Her Father, Adalid stated they have been concerned about her depression the past 6-7 months, but it worsened over the past 2 months. 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 Apparently she was working alot, which wasn't the issue. Her parents started to understand her depression was an illness and backed off yelling at Nila the past 2 weeks. 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 Nila stated she did not want to return to Dr. Carson in [place] or her therapist, Aisha Rodrigez, PhD . She stated her therapist is not aware she is in the hospital. She wants to decrease her hours at [employer] to [employer] and will work with her boss at the [employer] to adjust her hours. Review due (or D/C) 07/15 [place] - need to obtain IOP AUTH as well.
[2017-07-14 15:42] VITALS: BP 117/60
--- NOTE | 2017-07-14 17:52 | SOCIAL WORKER PROG NOTE PSYCH ---
Social Work Progress Note Progress Note TC - Dr. Carson left voicemail Nila will discharge 07/15 to [facility] has an intake 07/15/17 at 1:15pm. TC- Aisha Rodrigez, PhD - left voicemail stating patient is going to [facility].
[2017-07-14 19:38] VITALS: BP 114/59
[2017-07-15 07:39] VITALS: BP 109/68
[2017-07-15] MEDS ORDERED: TRAZODONE HCL50 M1 PO ×2 (10:01→10:08)
[2017-07-15] MEDS ORDERED: ESCITALOPRAM OX10 MG PO ×2 (10:01→10:08)
[2017-07-15] MEDS ORDERED: ABILIFY2 MG PO (10:01)
--- NOTE | 2017-07-15 10:10 | Patient Discharge Instructions ---
Psych Discharge Inst General Discharge Information Reason for Admission: thoughts of suicide Psy Discharge Primary Diag+ MDD ADHD Psy Discharge Secondary Diag+ Alcohol Use Disorder, mil Summary Tests/Major Procedures No significant abnormalities in diagnostic testing Lab Cholesterol 120 MG/DL 07/10/172122 Cholesterol/HDL Ratio 3 % 07/10/172122 HDL Cholesterol 43 mg/dL 07/10/172122 Hemoglobin A1c 5.1 % 07/10/172122 LDL Cholesterol, Calc 63 mg/dL L 07/10/172122 Triglycerides 70 mg/dL 07/10/172122 Studies Pending at DC: None Patient Instructions Contact Information Your Psychiatrist on [facility] was Tony TAYLOR,Julien * If you are experiencing an emergency related to this hospitalization, please call [phone] to contact the treating psychiatrist or the psychiatrist-on- call. * To Request a copy of your medical records, please contact the Medical Records Department at [phone]. * To request results of studies pending at the time of discharge, please call [phone]. * Continue your Medications until directed to stop by your Healthcare provider. General Medication Information Please continue to take your new medications and your continued home medications , unless otherwise indicated on your discharge medication list, or unless directed by your MD or [facility] to stop them. Special Instructions Diet Regular Activity Normal - Tobacco Use Treatment Offered Post DC Medications Offered: Refused Tob Medication Tx Post DC Tobacco Treatment Plan: Refused Tobacco Tx Pgm - EtOH/Drug Use D/O Treatment Offered Post DC Medications Offered: Med Not Indicated for D/O Post DC EtOH/SubAbuse TX Plan: Refused Post DC Tx Pgm Metabolic Screening Patient on a neuroleptic(s) . Enter below results for Hemoglobin A1C, and lipid panel if obtained during the last 365 days. BMI: 26.000 Blood Pressure: 109/68 Laboratory Results From [facility] (If applicable): Lab Cholesterol 120 MG/DL 07/10/172122 Cholesterol/HDL Ratio 3 % 07/10/172122 HDL Cholesterol 43 mg/dL 07/10/172122 Hemoglobin A1c 5.1 % 07/10/172122 LDL Cholesterol, Calc 63 mg/dL L 07/10/172122 Triglycerides 70 mg/dL 07/10/172122 Advance Directives Does the Patient have Medical Advance Directives No/Refused further info Does Pt have Psychiatric Advance Directives? No/Per pt req info provid Does Patient have a Designated Surrogate Decision Maker: No Information About Psychiatric Advance Directives Provided? Yes Discharge Plan Post Hospital Treatment Plan: IOP
--- NOTE | 2017-07-15 10:20 | SOCIAL WORKER PROG NOTE PSYCH ---
Social Work Progress Note Progress Note Pt states she feels ready for discharge, we explored ways to manage depression and anxiety, and new ways to "support herself" post discharge. Pt states "this conversation has been very helpful", she plans to go to IOP intake at 1pm, and will have her Father pick her up from there. Pt denies si/hi/ah/vh, she states "I feel great". Faxed Referral(s) Referred To: [facility] Transition of Care Documents sent: DC Instructions, Health Summary, W10 Faxed to: [facility] Fax #: [phone] Faxed by: Patience Huggins Date faxed: 07/15/17 Time Faxed: [phone]
--- NOTE | 2017-07-15 12:59 | CP SOUTH PROGRESS NOTE PSYCH ---
Psych (Inpt) Progress Note Progress Note Vital Signs Date Time Temp Pulse Resp B/P B/P Pulse O2 O2 Flow FiO2 Mean Ox Delivery Rate 07/15 0739 98.1 90 109/68 07/14 1938 99.4 75 114/59 07/14 1542 73 117/60 The patient's treatment and progress and aftercare plans were discussed and the treatment team meeting this morning. Mental status examination: The patient was alert and oriented to time, place, and person. She was future focused, coherent. She has good appetite. She was pleasant, cooperative, well groomed and well related with good eye contact. There were no abnormal movements and no psychomotor changes. Speech is normal. The patient's thinking is linear and not delusional. No thoughts to harm self/others. Affect is full and reactive, mood is good. Insight and judgment are good. Cognition intact. The patient denied hallucinating. Plan: Discharge home with plan to continue intensive outpatient treatment
--- NOTE | 2017-07-15 13:08 | DISCHARGE SUMMARY REPORT-PSYCH ---
Visit Information Visit Dates/Diagnosis' Admission Date: 07/11/17 Discharge Date: 07/15/17 Reason for Admission: thoughts of suicide Psy Discharge Primary Diag: MDD ADHD Psy Discharge Secondary Diag: Alcohol Use Disorder, mil Hospital Course Significant Lab Findings: The patient did not have any significant lab abnormalities Course Complications: Patient did not have any complications while she was on the inpatient psychiatric unit Consultations: The patient had a history and physical examination while she was on the inpatient psychiatric unit. Please refer to the molecular genetic pathologist's note in the patient 's electronic record for the H&P Allergies: Coded Allergies: No Known Allergies (07/10/17) Hospital Course/TX Response: July 11, 2017: Impression and Plan: 27-year-old single white female who presented with increasing depression and thoughts to suicide with overdose DSM 5 Diagnosis(es): Major depressive disorder ADHD Alcohol use disorder, mild Treatment Plan: Inpatient psychiatric care with safety checks every 15 minutes Resume Abilify 2 mg daily Continue Lexapro 10 mg daily Continue Klonopin 1 mg twice daily There is no where there were no further changes in the patient medication for the remainder of her stay she showed consistent improvement in her mood. There were no thoughts of suicide for the remainder of her stay. Family meeting took place on July 14, 2017 with Georgia Ortiz LCSW Patient's condition at the time of discharge (July 15, 2017) Vital Signs Date Time Temp Pulse Resp B/P B/P Pulse O2 O2 Flow FiO2 Mean Ox Delivery Rate 07/15 0739 98.1 90 109/68 07/14 1938 99.4 75 114/59 07/14 1542 73 117/60 The patient's treatment and progress and aftercare plans were discussed and the treatment team meeting this morning. Mental status examination: The patient was alert and oriented to time, place, and person. She was future focused, coherent. She has good appetite. She was pleasant, cooperative, well groomed and well related with good eye contact. There were no abnormal movements and no psychomotor changes. Speech is normal. The patient's thinking is linear and not delusional. No thoughts to harm self/others. Affect is full and reactive, mood is good. Insight and judgment are good. Cognition intact. The patient denied hallucinating. Plan: Discharge home with plan to continue intensive outpatient treatment Discharge HBIPS - Tobacco Use Treatment Offered Post DC Medications Offered: Refused Tob Medication Tx Post DC Tobacco Treatment Plan: Refused Tobacco Tx Pgm - EtOH/Drug Use D/O Treatment Offered Post DC Medications Offered: Med Not Indicated for D/O Post DC EtOH/SubAbuse TX Plan: Refused Post DC Tx Pgm Metabolic Screening - Screen if on a Neuroleptic Medication - Metabolic screening should include: - Blood Pressure, BMI, Glucose or Hgb A1c, & a - Lipid profile from within the past 365 days. Metabolic Screening Patient on a neuroleptic(s) . Enter below results for Hemoglobin A1C, and lipid panel if obtained during the last 365 days. BMI: 26.000 Blood Pressure: 109/68 Laboratory Results From [facility] (If applicable): Lab Cholesterol 120 MG/DL 07/10/172122 Cholesterol/HDL Ratio 3 % 07/10/172122 HDL Cholesterol 43 mg/dL 07/10/172122 Hemoglobin A1c 5.1 % 07/10/172122 LDL Cholesterol, Calc 63 mg/dL L 07/10/172122 Triglycerides 70 mg/dL 07/10/172122 Discharge Instructions General Discharge Information Multiple Neuroleptics: ([X]) Not Applicable Discharge Diet Regular Discharge Activity Normal DC Disposition: Home Referrals Ordered Referrals Provider Referral 07/15/17 For Groups: [ IOP] [facility] [address] [place] [address]#[phone] IOP Intake 07/15 at 1:15pm Prescriptions Stop taking the following medications: Dextroamphetamine/Amphetamine (Dextroamp-Amphet ER 30 MG Cap) (Unknown Strength) CAP.ER.24H ORAL Every Morning Qty = 30 [place] Carbonate ([place] Carbonate) (Unknown Strength) CAPSULE ORAL DAILY Qty = 10 Hydroxyzine HCl (hydrOXYzine HCl) (Unknown Strength) TABLET Qty = 15 Ibuprofen (Ibuprofen) 600 MG TABLET ORAL THREE TIMES DAILY as needed for PAIN/ INFLAMMATION Qty = 15 Continue taking these medications: Clonazepam (Clonazepam) 1 MG TABLET 1 Tablet ORAL 2 x Daily as needed as needed for ANXIETY Qty = 30 Comments: Last Taken:07/14/17 Time:21:23 Escitalopram Oxalate (Escitalopram Oxalate) 10 MG TABLET 1 Tablet ORAL DAILY Qty = 30 Comments: Last Taken:07/15/17 Time:07:42 This prescription has been renewed Start taking the following new medications: Trazodone HCl (Trazodone HCl) 50 MG TABLET 75 Milligram ORAL AT BEDTIME as needed for insomnia Qty = 60 No Refills Comments: Last Taken:07/14/17 Time:20:29 Aripiprazole (Abilify) 2 MG TABLET 2 Milligram ORAL DAILY @8 AM Qty = 30 No Refills Comments: Last Taken:07/15/17 Time:07:42 Studies Pending at Discharge None Copies To: IOP
--- NOTE | 2017-07-16 11:21 | SOCIAL WORKER PROG NOTE PSYCH ---
Social Work Progress Note Progress Note Phoned in discharge clinical today 07/16/17 to [facility]#[phone], [id number], requested auth for IOP level of care. Per GLASS PRODUCTION MACHINE OPERATOR design intern, Mariel Rubi, Received call back on voicemail from [facility] this morning. AUTH given for inpatient stay [id number]. IOP AUTH: 11 days - AUTH [id number], call [facility] for additional days #[phone]
== END 2017-07-15 13:15 | DRG 881 ==
LOC: ERH 20:07 → CP SOUTH 07-11 11:11 → ERHI 07-11 11:11 → ENTRNSPT 07-11 11:57 → ENRESERV 07-11 12:00 → EDTRNSPTSTS 07-11 12:07 → EDTRNSPT 07-11 12:07 → CMPTRNSPT 07-11 12:18 → CP SOUTH 07-11 12:22
PROVIDERS: Physician Assistant Medical
DX: F32.9 Major depressive disorder, single episode, unspecified (principal); F10.10 Alcohol abuse, uncomplicated; F90.9 Attention-deficit hyperactivity disorder, unspecified type
CPT/HCPCS: 80307; 81001; 81025; G0480